=== PATIENT | female | born 1980 | race African-American/Black ===

== ENCOUNTER 2016-12-10 05:18 | Emergency (ER) | payer MEDICARE, MEDICAID ==
[~2016-12-10] VITALS: Ht 172.7 cm; Wt 125.0 kg
[2016-12-10] MEDS ORDERED: SODIUM BICARBONATE 8.4% INJ 50 MEQ/50 ML SYR IV ONE (05:19)
[2016-12-10] MEDS ORDERED: EPINEPHrine HCL (1:10,000) 1 MG/10 ML SYRINGE IV ONE (05:19)
--- NOTE | 2016-12-10 05:32 | PD ---
HPI Chief Complaint: cardiopulmonary arrest Time Seen by Provider: 05:31 Travel History International Travel<30 days: No Contact w/Intl Traveler<30days: No History of Present Illness HPI The patient is a 22 something appearing female who presents to the [facility] emergency department with a history of being found by a friend in her home unresponsive prior to arrival. The patient was in the living room with a generator noted to be working on the floor. The door of the home was ajar. It is unknown how long the patient was in the room with the generator. Upon ambulance services arrival, the patient was noted to be in asystole. Prior to this, CPR had been in progress by bystanders for approximate 10 minutes. Prior to arriving in the emergency department chest compressions were continued for another 30 minutes while ACLS protocol was provided and the patient was given epinephrine in separate doses every 3-5 minutes. The patient was given reportedly 5 doses of epinephrine prior to her arrival and continued to be in asystole. The patient had no spontaneous respiratory effort noted. The patient was palpably cool to the touch. The patient's blood sugar prior to arrival was in the 300s. 2 other family members were in the home and also found to be unresponsive prior to arrival. As the patient arrives unresponsive no other history is able to be obtained from the patient. [facility] Past Medical History Narrative Medical The patient's past medical history is unable to be obtained Past Surgical History Narrative Surgical The patient's past surgical history is unable to be obtained. Social History Tobacco Use: No (the patient's social history is unable to be obtained) Allergies-Medications Comments The patient's allergy history is unable to be obtained Narrative Medication The patient's current medications are unable to be obtained. Review of Systems ROS Limitations: Intubated, Unresponsive Physical Exam Narrative General: The patient is a well-developed well-nourished, morbidly obese female who arrives with CPR in progress. Head and Neck exam: Head is normocephalic atraumatic. Eyes: extraocular motion testing is unable to be accomplished as the patient arrives unresponsive, pupils are fixed and dilated. Nose: Midline septum with pink mucous membranes Mouth: Dentition unremarkable. Moist mucus membranes. Posterior oropharynx is unable to be fully visualizes patient has an [address] Neck: No palpable lymphadenopathy. No nuchal rigidity. No thyromegaly. Cardiovascular: No cardiac activity is auscultated. Lungs: Equal breath sounds bilaterally being assisted with bag valve to endotracheal tube. The endotracheal tube is a cuffed size 8. No wheezes, rhonchi, or rales. The patient has no spontaneous respiratory activity. Abdomen: Soft, without tenderness to palpation in all 4 quadrants of the abdomen. No guarding, rebound, or rigidity. Extremities: No clubbing, cyanosis, or edema. Neurologic Exam: The patient arrives with a GCS of 3. Eyes 1. Motor 1. Verbal- 1. Skin Exam: No rash noted. Intact skin that is cool and dry. Data Data Last Documented VS Vital Signs Date Time Temp Pulse Resp B/P (MAP) Pulse Ox O2 Delivery O2 Flow Rate FiO2 12/10/16 06:05 0 0 0/0 (0) MDM Medical Decision Making Medical Screen Exam Complete: Yes Emergency Medical Condition: Yes Medical Record Reviewed: No Differential Diagnosis Cardiopulmonary arrest related to carbon monoxide toxicity, versus cardiac arrhythmia, versus hypoxic brain injury, versus sudden cardiac Narrative Course During the course of the patients emergency department visit, IV access obtained and blood work sent for analysis. Attempts were made at other IV access. The patient had a working line in place in the right upper extremity from ambulance services. ACLS protocol was continued. 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 On repeat assessment of her cardiac rhythm she continued to be in asystole. The patient was given epinephrine 1 mg IV and separate doses every 3-5 minutes while resuscitative efforts were continued. The patient was provided 2 A of bicarbonate. An ultrasound for cardiac activity was done by me. The patient had no visualize cardiac activity noted. Attempts were made to get an ABG in this patient to assess for carbon monoxide toxicity. The patient continued to be unresponsive to resuscitative efforts. The patient had been resuscitated for approximate 40 minutes without any return of spontaneous cardiac activity prior to arrival. Resuscitative efforts were continued in the emergency department, however she continued to have no response. The patient's time of was called at 5:30 AM. The patient's closest family arrived in the emergency department and were notified. Diagnosis Primary Impression: Cardiopulmonary arrest [facility] Condition: Mili Jackson MD Dec 10, 2016 05:32
[2016-12-10 06:05] VITALS: BP 0/0; PULSE 0; RESP 0
== END 2016-12-10 10:01 | disposition expired ==
LOC: NEPC 05:18 → EDBD 05:18 → NEPI 10:01
DX: I46.9 Cardiac arrest, cause unspecified (principal)
CPT/HCPCS: 92950; 99285; J0171